=== PATIENT | male | born 1965 ===

== ENCOUNTER 2019-02-15 07:11 | Day surgery (SDC) | payer OTHER | END 2019-02-15 16:50 | disposition home or self-care (01) | LOC: AMB-ENDOS 07:11 | DX: K57.30 Diverticulosis of large intestine without perforation or abscess without bleeding (principal); K64.1 Second degree hemorrhoids; Z12.11 Encounter for screening for malignant neoplasm of colon; D17.1 Benign lipomatous neoplasm of skin and subcutaneous tissue of trunk ==

== ENCOUNTER 2021-04-16 10:22 | Outpatient (CLI) | payer OTHER | END 2021-04-16 10:27 | disposition home or self-care (01) | LOC: SONOGRAMA 10:22 → MAMO-SONO 10:45 | PROVIDERS: ATTEND Specialist | DX: R97.20 Elevated prostate specific antigen [PSA] (principal); N45.2 Orchitis ==